=== PATIENT | male | born 1995 | race Caucasian/White ===

== ENCOUNTER 2016-11-23 08:47 | Emergency (ER) | payer OTHER ==
[~2016-11-23] VITALS: Ht 182.9 cm; Wt 100.4 kg
[2016-11-23] MEDS ORDERED: NAPROSYN500 MG PO (10:09)
[2016-11-23 10:24] VITALS: BP 129/71
== END 2016-11-23 10:24 | disposition home or self-care (01) ==
LOC: EME 08:47
DX: R07.89 Other chest pain (principal); F17.200 Nicotine dependence, unspecified, uncomplicated
CPT/HCPCS: 71020; 93005; 99281; 99283

== ENCOUNTER 2017-03-15 21:36 | Emergency (ER) | payer OTHER ==
[~2017-03-15] VITALS: Ht 182.9 cm; Wt 105.1 kg
[~2017-03-15 21:36] MED LIST: NAPROSYN500 MG PO
[2017-03-15 23:19] VITALS: BP 142/97
== END 2017-03-15 23:19 | disposition home or self-care (01) ==
LOC: EME 21:36
DX: S61.211A Laceration without foreign body of left index finger without damage to nail, initial encounter (principal); W26.8XXA Contact with other sharp object(s), not elsewhere classified, initial encounter; Y99.0 Civilian activity done for income or pay; F17.200 Nicotine dependence, unspecified, uncomplicated
CPT/HCPCS: 99281; 99283